=== PATIENT | female | born 1940 | race American Indian/Alaskan Native ===

== ENCOUNTER 2018-01-16 13:07 | Emergency (ER) | payer BC ==
[2018-01-16 13:58] VITALS: BP 146/63
--- NOTE | 2018-01-16 14:29 | EDM.PDOC ---
ED HPI GENERAL MEDICAL PROBLEM - General Chief Complaint: Abdominal Pain Stated Complaint: DEHYDRATED, NO ENERGY Time Seen by Provider: 01/16/18 14:15 Source of Information: Reports: Patient, Old Records History Limitations: Reports: No Limitations - History of Present Illness INITIAL COMMENTS - FREE TEXT/NARRATIVE: 77 yo female here with epigastric pressure today associated with low grade fever on an off for a couple days. No self tx today. Has a pHx of gastric bypass here. Drinking or eating does not change her sx's. No bowel or bladder changes. Has a rare cough without SOB. No rash. Still has her gallbladder and appendix. Onset: Gradual Onset Date: 01/13/18 Duration: Waxing/Waning Location: Reports: Abdomen (epigastrium) Quality: Reports: Pressure (mild) Severity: Mild Improves with: Reports: None Worsens with: Reports: None Context: Reports: Other (PHx of gastric bypass) Associated Symptoms: Reports: Fever/Chills (low grade) Treatments DISABILITY EXAMINER: Reports: Other (see below) (none) denies Pain Score (Numeric/FACES): 0 - Related Data Allergies Allergy/AdvReac Type Severity Reaction Status Date / Time No Known Allergies Allergy Verified 01/16/18 13:45 Home Meds: Home Meds Cholecalciferol (Vitamin D3) [Vitamin D3] 1,000 units PO DAILY 01/16/18 [History ] Mv-Mn/FA/Vit K/Lycop/Lut/Coq10 [Daily Multivitamin Capsule] 1 tab PO DAILY 01/16 [History] Vitamin B 12 Inj 1 injection IM ASDIRECTED 01/16/18 [History] metFORMIN [Glucophage] 500 mg PO BEDTIME 01/16/18 [History] Past Medical History Genitourinary History: Reports: Renal Calculus 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: , 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 Musculoskeletal History: Reports: Fracture Other Musculoskeletal History: fx ankle Endocrine/Metabolic History: Reports: Diabetes, Type II, Obesity/BMI 30+ Hematologic History: Reports: B12 Deficiency - Infectious Disease History Infectious Disease History: Reports: Chicken Pox, Measles, Mumps - Past Surgical History HEENT Surgical History: Reports: Cataract Surgery GI Surgical History: Reports: Bariatric Procedure, Colonoscopy Social & Family History - Tobacco Use Smoking Status *Q: Never Smoker Second Hand Smoke Exposure: No - Caffeine Use Caffeine Use: Reports: Tea - Recreational Drug Use Recreational Drug Use: No ED ROS GENERAL - Review of Systems Review Of Systems: See Below Constitutional: Reports: Fever (low grade) HEENT: Reports: No Symptoms Respiratory: Reports: Cough (rare) Cardiovascular: Reports: No Symptoms GI/Abdominal: Reports: Abdominal Pain (mild epigastric pressure). Denies: Black Stool, Bloody Stool, Constipation, Diarrhea, Melena, Nausea, Vomiting : Reports: No Symptoms Musculoskeletal: Reports: No Symptoms Skin: Reports: No Symptoms Neurological: Reports: No Symptoms ED EXAM, GI/ABD - Physical Exam Exam: See Below Exam Limited By: No Limitations General Appearance: Alert, WD/WN, No Apparent Distress Eyes: Bilateral: Normal Appearance Ears: Normal External Exam, Normal Canal, Hearing Grossly Normal, Normal TMs Nose: Normal Inspection, Normal Mucosa, No Blood Throat/Mouth: Normal Inspection, Normal Lips, Normal Oropharynx, Normal Voice, No Airway Compromise Head: Atraumatic, Normocephalic Neck: Normal Inspection, Supple Respiratory/Chest: No Respiratory Distress, No Accessory Muscle Use, Rhonchi (L base) Cardiovascular: Regular Rate, Rhythm, No Edema GI/Abdominal Exam: Normal Bowel Sounds, Soft, Non-Tender Back Exam: Normal Inspection. No: CVA Tenderness (R), CVA Tenderness (L) Extremities: Normal Inspection, Normal Range of Motion, Non-Tender, No Pedal Edema Neurological: Alert, Oriented, CN II-XII Intact, Normal Cognition, No Motor/ Sensory Deficits Psychiatric: Normal Affect, Normal Mood Course - Vital Signs Last Recorded V/S: Last Vital Signs Temp 37.1 C 01/16/18 14:04 Pulse 77 01/16/18 14:04 Resp 13 01/16/18 14:04 BP 146/63 H 01/16/18 14:04 Pulse Ox 98 01/16/18 14:04 - Orders/Labs/Meds Orders: Active Orders 24 hr Category Date Time Status Chest 2V [CR] Stat Exams 01/16/18 14:23 Taken UA W/MICROSCOPIC [URIN] Stat Lab 01/16/18 14:23 Ordered Labs: Laboratory Tests 01/16/18 01/16/18 01/16/18 Range/Units 14:23 14:23 14:23 WBC 11.8 H (4.5-11.0) K/uL RBC 4.07 (3.30-5.50) M/uL Hgb 11.7 L (12.0-15.0) g/dL Hct 35.5 L (36.0-48.0) % MCV 87 (80-98) fL MCH 29 (27-31) pg MCHC 33 (32-36) % Plt Count 278 (150-400) K/uL Sodium 138 L (140-148) mmol/L Potassium 3.9 (3.6-5.2) mmol/L Chloride 103 (100-108) mmol/L Carbon Dioxide 26 (21-32) mmol/L Anion Gap 12.9 (5.0-14.0) mmol/L BUN 12 (7-18) mg/dL Creatinine 0.9 (0.6-1.0) mg/dL Est Cr Clr Drug Dosing 50.90 mL/min Estimated GFR (MDRD) > 60 (>60) Glucose 236 H (74-106) mg/dL Calcium 8.4 L (8.5-10.1) mg/dL C-Reactive Protein 6.20 H (0.0-0.3) mg/dL Urine Color [place] Urine Appearance Clear Urine pH 5.0 (4.5-8.0) Ur Specific [place] 1.015 (1.008-1.030) Urine Protein Negative (NEGATIVE) mg/dL Urine Glucose (UA) 250 H (NEGATIVE) mg/dL Urine Ketones Negative (NEGATIVE) mg/dL Urine Occult Blood Negative (NEGATIVE) Urine Nitrite Negative (NEGATIVE) Urine Bilirubin Moderate (NEGATIVE) Urine Urobilinogen >=12 H (NORMAL) mg/dL Ur Leukocyte Esterase Negative (NEGATIVE) Urine RBC 0-5 (0-5) Urine WBC 10-20 H (0-5) Ur Epithelial Cells Many Amorphous Sediment Not seen Urine Bacteria Not seen Urine Mucus Not seen - Radiology Interpretation Free Text/Narrative:: CXR-Loss of heart border along L base. Departure - Departure Time of Disposition: 15:35 Disposition: Home, Self-Care 01 Condition: Fair Clinical Impression: Elevated blood sugar UTI (urinary tract infection) Qualifiers: Urinary tract infection type: site unspecified Hematuria presence: without hematuria Qualified Code(s): N39.0 - Urinary tract infection, site not specified - Discharge Information Referrals: Vivian Ayala I CONVEYANCER [Primary Care Provider] - Forms: ED Department Discharge - My Orders Last 24 Hours: My Active Orders 01/16/18 14:23 Chest 2V [CR] Stat UA W/MICROSCOPIC [URIN] Stat - Assessment/Plan Last 24 Hours: My Active Orders 01/16/18 14:23 Chest 2V [CR] Stat UA W/MICROSCOPIC [URIN] Stat
--- NOTE | 2018-01-17 09:21 | CR ---
Chest 2V INDICATION: low grade fever, rhonchi L base COMPARISON: None FINDINGS: Two views. Heart size normal. Lungs are clear. No infiltrate or pleural effusion. No sig ns of pulmonary edema.
== END 2018-01-16 15:47 | disposition home or self-care (01) ==
LOC: JP.ED 13:07
DX: N39.0 Urinary tract infection, site not specified (principal); E11.9 Type 2 diabetes mellitus without complications; Z79.84 Long term (current) use of oral hypoglycemic drugs
CPT/HCPCS: 36415; 71046; 71046-26; 80048; 81001; 85027; 86140; 99284

== ENCOUNTER 2018-01-17 16:54 | Inpatient (IN) | payer BC ==
[2018-01-17] MEDS ORDERED: HYDROmorphone 0.5 MG/0.5 ML Syringe IVPUSH ONE (18:08)
--- NOTE | 2018-01-17 18:14 | EDM.PDOC ---
ED HPI GENERAL MEDICAL PROBLEM - General Chief Complaint: Abdominal Pain Stated Complaint: ABDOMINAL PAIN Time Seen by Provider: 01/17/18 18:00 Source of Information: Reports: Patient, Old Records History Limitations: Reports: No Limitations - History of Present Illness INITIAL COMMENTS - FREE TEXT/NARRATIVE: 77 yo female was here yesterday with mild epigastric fullness. Her labs were normal and her exam was fairly unremarkable. Also, her sx's were mostly better in the ER and remained mostly gone until about 12:30 pm today. She ate last night and this morning without incidence. However, lunch was a small amt of tomato soup after which her sx's returned worse than ever. No imaging was done yesterday, but with her getting worse today this may be taylor. She denies fever or nausea, but does request pain meds. Onset: Today Onset Date: 01/17/18 Onset Time: 12:30 Duration: Hour(s):, Constant Location: Reports: Abdomen (epigastrium) Quality: Reports: Other (fullness) Severity: Moderate Improves with: Reports: None Worsens with: Reports: None Context: Reports: Other (PHx of gastric bypass) Associated Symptoms: Reports: Loss of Appetite. Denies: Fever/Chills, Nausea/ Vomiting Treatments CLAIMS SORTER: Reports: Other (see below) (none) abd Pain Score (Numeric/FACES): 6 - Related Data Allergies Allergy/AdvReac Type Severity Reaction Status Date / Time No Known Allergies Allergy Verified 01/16/18 13:45 Home Meds: Home Meds Amoxicillin 500 mg PO TID #30 capsule 01/16/18 [Rx] Cholecalciferol (Vitamin D3) [Vitamin D3] 1,000 units PO DAILY 01/16/18 [History ] Mv-Mn/FA/Vit K/Lycop/Lut/Coq10 [Daily Multivitamin Capsule] 1 tab PO DAILY 01/16 [History] Vitamin B 12 Inj 1 injection IM ASDIRECTED 01/16/18 [History] metFORMIN [Glucophage] 1,000 mg PO BEDTIME 01/16/18 [History] Past Medical History Genitourinary History: Reports: Renal Calculus 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: , 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 Musculoskeletal History: Reports: Fracture Other Musculoskeletal History: fx ankle Endocrine/Metabolic History: Reports: Diabetes, Type II, Obesity/BMI 30+ Hematologic History: Reports: B12 Deficiency - Infectious Disease History Infectious Disease History: Reports: Chicken Pox, Measles, Mumps - Past Surgical History HEENT Surgical History: Reports: Cataract Surgery GI Surgical History: Reports: Bariatric Procedure, Colonoscopy Social & Family History - Tobacco Use Smoking Status *Q: Never Smoker - Caffeine Use Caffeine Use: Reports: Tea - Recreational Drug Use Recreational Drug Use: No ED ROS GENERAL - Review of Systems Review Of Systems: See Below Constitutional: Reports: No Symptoms HEENT: Reports: No Symptoms Respiratory: Reports: No Symptoms Cardiovascular: Reports: No Symptoms GI/Abdominal: Reports: Abdominal Pain, Decreased Appetite. Denies: Black Stool , Bloody Stool, Constipation, Diarrhea, Difficulty Swallowing, Hematemesis, Hematochezia, Melena, Nausea, Vomiting : Reports: No Symptoms Musculoskeletal: Reports: No Symptoms Skin: Reports: No Symptoms Neurological: Reports: No Symptoms Psychiatric: Reports: No Symptoms ED EXAM, GI/ABD - Physical Exam Exam: See Below Exam Limited By: No Limitations General Appearance: Alert, WD/WN, No Apparent Distress Eyes: Bilateral: Normal Appearance Ears: Normal External Exam, Normal Canal, Hearing Grossly Normal Nose: Normal Inspection, Normal Mucosa, No Blood Throat/Mouth: Normal Inspection, Normal Lips, Normal Oropharynx, Normal Voice, No Airway Compromise Head: Atraumatic, Normocephalic Neck: Normal Inspection, Supple, Non-Tender Respiratory/Chest: No Respiratory Distress, Lungs Clear, Normal Breath Sounds, No Accessory Muscle Use Cardiovascular: Regular Rate, Rhythm, No Edema GI/Abdominal Exam: Normal Bowel Sounds, Soft, Distended (mild), Tender (mild epigastric tenderness. ) Back Exam: Normal Inspection Extremities: Normal Inspection, Normal Range of Motion, Non-Tender, No Pedal Edema Neurological: Alert, Oriented, CN II-XII Intact, Normal Cognition Psychiatric: Normal Affect, Normal Mood Skin Exam: Warm, Dry, Intact, Normal Color, No Rash Course - Vital Signs Text/Narrative:: Dr. Ayala accepted @ Last Recorded V/S: Last Vital Signs Temp 37.3 C 01/17/18 20:25 Pulse 73 01/17/18 20:25 Resp 16 01/17/18 20:25 BP 141/60 H 01/17/18 20:25 Pulse Ox 96 01/17/18 20:25 - Orders/Labs/Meds Orders: Active Orders 24 hr Category Date Time Status Abdomen Pelvis w Cont [CT] Stat Exams 01/17/18 18:04 Taken Iopamidol [Isovue-300 (61%)] Med 01/17/18 18:30 Active 100 ml IV . DIRECTED Lactated Ringers [Ringers, Lactated] 1,000 ml Med 01/17/18 18:15 Active IV ASDIRECTED Sodium Chloride 0.9% [Normal Saline] 80 ml Med 01/17/18 18:30 Active IV ASDIRECTED Sodium Chloride 0.9% [Saline Flush] Med 01/17/18 18:18 Active 10 ml FLUSH ASDIRECTED PRN Medication Orders Lactated Ringer's (Ringers, Lactated) 1,000 mls @ 150 mls/hr IV ASDIRECTED DERICK Last Admin: 01/17/18 18:46 Dose: 150 mls/hr Sodium Chloride (Normal Saline) 80 mls @ 3 mls/sec IV ASDIRECTED DERICK Last Admin: 01/17/18 18:35 Dose: 3 mls/sec Iopamidol (Isovue-300 (61%)) 100 ml IV . DIRECTED [facility] Last Admin: 01/17/18 18:35 Dose: 100 ml Sodium Chloride (Saline Flush) 10 ml FLUSH ASDIRECTED PRN PRN Reason: Keep Vein Open Last Admin: 01/17/18 18:35 Dose: 10 ml Labs: Laboratory Tests 01/17/18 01/17/18 Range/Units 19:30 19:43 WBC 12.5 H (4.5-11.0) K/uL RBC 4.07 (3.30-5.50) M/uL Hgb 12.3 (12.0-15.0) g/dL Hct 35.1 L (36.0-48.0) % MCV 86 (80-98) fL MCH 30 (27-31) pg MCHC 35 (32-36) % Plt Count 281 (150-400) K/uL Sodium 138 L (140-148) mmol/L Potassium 3.9 (3.6-5.2) mmol/L Chloride 104 (100-108) mmol/L Carbon Dioxide 23 (21-32) mmol/L Anion Gap 14.9 H (5.0-14.0) mmol/L BUN 12 (7-18) mg/dL Creatinine 0.8 (0.6-1.0) mg/dL Est Cr Clr Drug Dosing 57.27 mL/min Estimated GFR (MDRD) > 60 (>60) Glucose 222 H (74-106) mg/dL Calcium 8.5 (8.5-10.1) mg/dL Total Bilirubin 2.6 H (0.2-1.0) mg/dL AST 62 H (15-37) U/L ALT 111 H (12-78) U/L Alkaline Phosphatase 185 H (46-116) U/L Total Protein 7.0 (6.4-8.2) g/dL Albumin 3.0 L (3.4-5.0) g/dL Globulin 4.0 H (2.3-3.5) g/dL Albumin/Globulin Ratio 0.8 L (1.2-2.2) Meds: Medications Generic Name Dose Route Start Last Admin Trade Name Freq PRN Reason Stop Dose Admin Lactated Ringer's 1,000 mls @ 150 mls/hr 01/17/18 18:15 01/17/18 18:46 Ringers, Lactated IV 150 mls/hr ASDIRECTED DERICK Administration Sodium Chloride 80 mls @ 3 mls/sec 01/17/18 18:30 01/17/18 18:35 Normal Saline IV 3 mls/sec ASDIRECTED DERICK Administration Iopamidol 100 ml 01/17/18 18:30 01/17/18 18:35 Isovue-300 (61%) IV 100 ml . DIRECTED DERICK Administration Sodium Chloride 10 ml 01/17/18 18:18 01/17/18 18:35 Saline Flush FLUSH 10 ml ASDIRECTED PRN Administration Keep Vein Open Discontinued Medications Generic Name Dose Route Start Last Admin Trade Name Freq PRN Reason Stop Dose Admin Hydromorphone HCl 0.5 mg 01/17/18 18:08 01/17/18 18:45 Dilaudid IVPUSH 01/17/18 18:09 0.5 mg ONETIME ONE Administration - Radiology Interpretation Free Text/Narrative:: CT abd/pelvis with contrast-distended gallbladder. CT Results Date: 01/17/18 CT Results Time: 19:25 Departure - Departure Time of Disposition: 20:45 Disposition: Admitted As Inpatient 66 Condition: Fair Clinical Impression: Cholecystitis - Discharge Information Referrals: Ayala,Vivian I, HULL GRINDER [Primary Care Provider] - Forms: ED Department Discharge - My Orders Last 24 Hours: My Active Orders 01/17/18 18:04 Abdomen Pelvis w Cont [CT] Stat 01/17/18 18:15 Lactated Ringers [Ringers, Lactated] 1,000 ml IV ASDIRECTED 01/17/18 18:18 Sodium Chloride 0.9% [Saline Flush] 10 ml FLUSH ASDIRECTED PRN 01/17/18 18:30 Iopamidol [Isovue-300 (61%)] 100 ml IV . DIRECTED Sodium Chloride 0.9% [Normal Saline] 80 ml IV ASDIRECTED - Assessment/Plan Last 24 Hours: My Active Orders 01/17/18 18:04 Abdomen Pelvis w Cont [CT] Stat 01/17/18 18:15 Lactated Ringers [Ringers, Lactated] 1,000 ml IV ASDIRECTED 01/17/18 18:18 Sodium Chloride 0.9% [Saline Flush] 10 ml FLUSH ASDIRECTED PRN 01/17/18 18:30 Iopamidol [Isovue-300 (61%)] 100 ml IV . DIRECTED Sodium Chloride 0.9% [Normal Saline] 80 ml IV ASDIRECTED
[2018-01-17] MEDS ORDERED: Lactated Ringers 1,000 ML IV SCH (18:15)
[2018-01-17] MEDS ORDERED: Sodium Chloride 0.9% 10 ML Syringe FLUSH PRN (18:18)
[2018-01-17] MEDS ORDERED: Iopamidol 612 MG/ML 100 ML Bottle IV SCH (18:30)
[2018-01-17] MEDS ORDERED: Sodium Chloride 0.9% 80 ML IV SCH (18:30)
[2018-01-17] MEDS ORDERED: Ampicillin/Sulbactam Na 3 GM in Sodium Chloride 0.9% 100 ML IV ONE (20:38)
[2018-01-17] MEDS ORDERED: HYDROmorphone 1 MG/ML Syringe IVPUSH PRN (21:40)
[2018-01-17] MEDS: Ampicillin/Sulbactam Na 3 GM in Sodium Chloride 0.9% 100 ML IV SCH (22:17)
[2018-01-17] MEDS: Dextrose 5%-Lactated Ringers 1,000 ML IV SCH (22:23)
[2018-01-17] MEDS: Insulin Aspart 100 Units/ML 3 ML Pen SUBCUT SCH (22:29)
[2018-01-18] MEDS: Ampicillin/Sulbactam Na 3 GM in Sodium Chloride 0.9% 100 ML IV SCH ×4 (03:09→19:53)
[2018-01-18] MEDS: Dextrose 5%-Lactated Ringers 1,000 ML IV SCH ×3 (05:37→17:13)
[2018-01-18] MEDS ORDERED: Neostigmine Methylsulfate 1 MG/ML 5 ML Syringe ONE (06:55)
[2018-01-18] MEDS ORDERED: Propofol 200 MG/20 ML SDV ONE (06:55)
[2018-01-18] MEDS ORDERED: Glycopyrrolate 0.2 MG/ML 5 ML MDV ONE (06:55)
[2018-01-18] MEDS ORDERED: Ondansetron 4 MG/2 ML SDV ONE (06:55)
[2018-01-18] MEDS ORDERED: Succinylcholine 200 MG/10 ML MDV ONE (06:55)
[2018-01-18] MEDS ORDERED: Rocuronium 50 MG/5 ML Vial ONE (06:55)
[2018-01-18] MEDS ORDERED: Dexamethasone 4 MG/ML SDV ONE (06:55)
[2018-01-18] MEDS ORDERED: fentaNYL 250 MCG/5 ML SDV ONE (06:57)
[2018-01-18] MEDS ORDERED: Bupivacaine 0.5%/EPINEPHrine 1:200,000 50 ML MDV ONE (07:03)
[2018-01-18] MEDS ORDERED: HYDROmorphone/Normal Saline 15 MG/30 ML PCA IV PRN (07:17)
[2018-01-18] MEDS ORDERED: Naloxone 0.4 MG/ML SDV IV PRN (07:17)
[2018-01-18] MEDS ORDERED: Ketamine 500 MG/5 ML MDV IV SCH (08:00)
[2018-01-18] MEDS ORDERED: Ropivacaine 40 ML, Dexamethasone 8 MG, EPINEPHrine 0.4 MG, Sodium Chloride 0.9% 37.6 ML NERVRT SCH ×4 (08:00)
[2018-01-18] MEDS: Insulin Aspart 100 Units/ML 3 ML Pen SUBCUT SCH ×4 (09:17→21:16)
[2018-01-18] MEDS ORDERED: 50% Dextrose in Water 50 ML Syringe IVPUSH PRN (10:13)
[2018-01-18] MEDS ORDERED: Glucagon,Human Recombinant 1 MG Vial IM PRN (10:13)
[2018-01-18] MEDS ORDERED: Glucose Gel 15 GM in 37.5 GM Tube PO PRN (10:13)
[2018-01-18] MEDS ORDERED: Acetaminophen/HYDROcodone 325-5 MG Tab PO PRN (10:31)
[2018-01-18] MEDS: metFORMIN 500 MG Tab PO SCH ×2 (11:23→16:48)
[2018-01-18] MEDS: Ondansetron 4 MG/2 ML SDV IVPUSH PRN ×2 (12:12→17:13)
[2018-01-18] MEDS ORDERED: Pantoprazole 40 MG Vial IV SCH (14:00)
[2018-01-19] MEDS: Ampicillin/Sulbactam Na 3 GM in Sodium Chloride 0.9% 100 ML IV SCH ×2 (02:04→08:36)
[2018-01-19] MEDS: Dextrose 5%-Lactated Ringers 1,000 ML IV SCH (04:20)
[2018-01-19 07:42] VITALS: BP 148/67
[2018-01-19] MEDS: metFORMIN 500 MG Tab PO SCH (08:36)
[2018-01-19] MEDS: Insulin Aspart 100 Units/ML 3 ML Pen SUBCUT SCH (08:37)
--- NOTE | 2018-01-21 09:23 | DISCH ---
FINAL DIAGNOSES: 1. Subacute cholecystitis and cholelithiasis. 2. Billious pericholecystic inflammatory fluid collection. 3. Bariatric surgery status. 4. Type 2 diabetes mellitus, presently poorly controlled. 5. Recent diagnosis of urinary tract infection. OPERATIVE PROCEDURE: This was done on 01/18, diagnostic laparoscopy with: 1. Cholecystectomy. 2. Drainage of inflammatory pericholecystic fluid collection. HOSPITAL COURSE: In summary, this 77-year-old female is presenting here with a picture of acute or subacute cholecystitis. Her workup confirmed that, and on 01/18, the patient underwent a cholecystectomy. She had a bile stained pericholecystic fluid collection present with quite a bit of focal peritonitis associated with that. Postoperatively, she has done well, presently tolerating a regular diet and will be discharged home on Met[place]. She was given amoxicillin prior to hospitalization for UTI and then finished off the antibiotic treatment for that by means of inpatient Unasyn, which was also used for the gallbladder infection. One notable finding in this patient's hospitalization is her diabetes appears at this point appears to be relatively poorly controlled with blood sugars running in the 200s to low-to- mid 300s and hemoglobin A1c recorded on 01/18 was 8.5. She had recently deescalated her treatment somewhat and came in only on metformin 1000 mg in the evening. The plan at this point will be to move the metformin up to 1000 mg b.i.d., and she will be instructed to keep blood sugar logs and next week see her provider at [facility], Vivian Ayala NP Her preoperative bilirubin was 2.6 likely related to the acute or subacute cholecystitis. This morning on postop day one, it is down to 1.3 and her SG drain is clear and that will be removed. The patient will be discharged home today with Metz 5/325, 1 to 2 tabs q.4 hours p.r.n. pain, #30 and increase the metformin to 1000 mg b.i.d. otherwise to remain on her usual medications. She will be instructed to finish off the amoxicillin that she was started on prior to the hospitalization.
--- NOTE | 2018-01-28 07:51 | OR ---
DATE OF PROCEDURE: 01/18/2018 PREOPERATIVE DIAGNOSIS: Subacute cholecystitis and cholelithiasis. POSTOPERATIVE DIAGNOSES: 1. Subacute cholecystitis and cholelithiasis. 2. Bilious pericholecystic inflammatory fluid collection. OPERATIVE PROCEDURES: Diagnostic laparoscopy with: 1. Cholecystectomy (29430). 2. Drainage of bilious pericholecystic inflammatory fluid collection (03053). ANESTHESIA: General. TENTMAKER: Marni Manley PA-C. INDICATIONS FOR PROCEDURE: This is a 77-year-old admitted overnight with a picture of acute or subacute cholecystitis. The plan is to proceed with a laparoscopic or if necessary open cholecystectomy. Potential risks including bleeding and infection, injury to underlying viscera such as common bile duct, possible migration of stones into the common bile duct during the course of the dissection, requiring additional procedures for correction were all reviewed, and the patient wishes to proceed. DETAILS OF PROCEDURE: The patient was taken to the operating room and placed in a supine position. After general endotracheal anesthesia was induced, the abdomen was prepped and draped. Just to the right of the umbilicus, a transverse incision was made and the peritoneal cavity entered under direct vision with an Optiview trocar and inflated to 15 mmHg pressure with CO2. Laparoscope was then reinserted. No underlying trocar insertion site injuries were seen. Following this, an epigastric trocar was placed, along with a right upper quadrant trocar, and the upper abdomen was examined. The patient was noted to have a fairly striking and slightly bile-stained fluid collection predominantly behind the gallbladder. This resulted in localized peritonitis in that area. This fluid was aspirated and sent for culture. The gallbladder itself was edematous and quite distended and consistent with a subacute cholecystitis. The gallbladder was then retracted anteriorly and laterally and dissection with Harmonic scalpel begun on the gallbladder neck and continued around the gallbladder neck/cystic duct junction. Once that area, as well as the adjacent cystic artery were both clearly delineated, both structures were divided. The cystic duct/gallbladder neck junction were quite friable, and this was felt best treated with a surgical staple line, which was accomplished with a GASPER browne load. The artery was then divided between clips with electrocautery. The gallbladder was then dissected off the gallbladder bed and brought out through the upper abdominal trocar site. It was noted to contain multiple small stones. The area of dissection was inspected. A Ramiro-Mantilla drain was then placed into the area of the gallbladder bed, and the area of fluid associated with localized peritonitis behind that area, and brought out through the right lateral trocar site. The remaining trocars were then removed and the peritoneal cavity deflated. The fascia at the 12 mm sites was closed with 0 Vicryl stitch, and the skin with a 4-0 Vicryl skin stitch. Dressing was applied. The patient was taken to the recovery room in a satisfactory condition. There were no evident complications. Physician family medicine physician assistant, Marni Manley, played an essential role in assisting in this case, helping to position the patient, retract structures as needed, as well as suturing and cutting sutures when indicated. Her presence improved patient safety and decreased the operative time. Roe Ayala MD /[id number]
== END 2018-01-19 11:45 | disposition home or self-care (01) | DRG 263 ==
LOC: JP.ED 16:54 → JP.ICU 21:19 → JP.MS 01-18 10:00
PROVIDERS: ADMIT Surgery; ATTEND Surgery
PROC: 0FT44ZZ Resection of Gallbladder, Percutaneous Endoscopic Approach (ICD-10-PCS; principal; 2018-01-18)
PROC: 0D9W4ZX Drainage of Peritoneum, Percutaneous Endoscopic Approach, Diagnostic (ICD-10-PCS; 2018-01-18)
DX: K80.00 Calculus of gallbladder with acute cholecystitis without obstruction (principal); K65.8 Other peritonitis; N39.0 Urinary tract infection, site not specified; E53.8 Deficiency of other specified B group vitamins; E11.65 Type 2 diabetes mellitus with hyperglycemia; Z79.899 Other long term (current) drug therapy; Z79.84 Long term (current) use of oral hypoglycemic drugs; Z98.84 Bariatric surgery status; Z87.442 Personal history of urinary calculi
CPT/HCPCS: 36415; 74177; 80053; 82247; 82306; 82607; 82728; 82746; 82962; 83036; 84075; 85027; 87070; 87075; 87077; 87186; 87205; 88304; 94762; 96374; 96375; 99285-25; A9270-GY; C9113; J0171; J0295; J0330; J1100; J1170; J2405; J2704; J2710; J2795; J3010; J7030; J7042; J7050; J7120; Q9967

== ENCOUNTER 2023-07-14 15:10 | Emergency (ER) | payer BC, MEDICARE ==
[2023-07-14 16:56] VITALS: BP 137/74; PULSE 63
== END 2023-07-14 16:50 | disposition home or self-care (01) ==
LOC: JP.ED 15:10
DX: R42 Dizziness and giddiness (principal); H81.22 Vestibular neuronitis, left ear; E11.9 Type 2 diabetes mellitus without complications; E66.9 Obesity, unspecified; Z86.16 Personal history of COVID-19; Z68.28 Body mass index [BMI] 28.0-28.9, adult
CPT/HCPCS: 99283

== ENCOUNTER 2023-10-29 18:06 | Emergency (ER) | payer BC ==
[2023-10-29 18:47] VITALS: BP 166/73; PULSE 62
[2023-10-29 19:35] LABS: BASOPHILS ABSOLUTE AUTO 0.05 K/uL (0.00-0.10); BASOPHILS PERCENT AUTO 0.7 % (0.1-1.3); EOSINOPHILS ABSOLUTE AUTO 0.17 K/uL (0.00-0.40); EOSINOPHILS PERCENT AUTO 2.3 % (0.0-5.4); HEMATOCRIT 35.2 % (34.3-46.0); HEMOGLOBIN 11.3 g/dL (11.2-15.5); IMMATURE GRAN ABSOLUTE AUTO 0.04 K/uL (0.00-0.23); IMMATURE GRAN PERCENT AUTO 0.5 % (0.0-0.7); LYMPHOCYTES PERCENT AUTO 19.2 % (11.4-47.7); MEAN CORPUSCULAR HGB CONC 32.1 g/dL (31.6-35.5); MEAN CORPUSCULAR VOLUME 81.1 fL (81.4-99.0); MONOCYTES ABSOLUTE AUTO 0.32 K/uL (0.20-0.90); MONOCYTES PERCENT AUTO 4.4 % (3.3-12.6); NEUTROPHILS PERCENT AUTO 72.9 % (40.0-78.1); PLATELET COUNT,PLT 299 K/uL (130-375); RED BLOOD CELL COUNT 4.34 M/uL (3.77-5.24); WHITE BLOOD CELL COUNT,WBC 7.3 K/uL (3.2-11.0)
[2023-10-29 20:04] LABS: A/G RATIO 0.9 (1.2-2.2); ALANINE AMINOTRANSFERASE,ALT 15 U/L (12-78); ALBUMIN 3.4 g/dL (3.4-5.0); ALKALINE PHOSPHATASE 107 U/L (46-116); ANION GAP 7.9 mmol/L (5.0-14.0); ASPARTATE AMNIOTRANSFERASE,AST 16 U/L (15-37); BILIRUBIN TOTAL 0.3 mg/dL (0.2-1.0); BLOOD UREA NITROGEN,BUN 14 mg/dL (7-18); CALCIUM 8.9 mg/dL (8.5-10.1); CARBON DIOXIDE,CO2 26 mmol/L (21-32); CHLORIDE,CL 108 mmol/L (100-108); EST CRCL DRUG DOSING (CG) 38.36 mL/min; ESTIMATED GFR 56 mL/min (>60); GLUCOSE RANDOM 153 mg/dL (74-106); POTASSIUM,K 4.4 mmol/L (3.6-5.2); PROTEIN TOTAL,TP 7.2 g/dL (6.4-8.2); SODIUM,NA 142 mmol/L (140-148); TSH ULTRASENSITIVE 1.308 uIU/mL (0.358-3.740)
== END 2023-10-29 21:12 | disposition home or self-care (01) ==
LOC: JP.ED 18:06
DX: R42 Dizziness and giddiness (principal); E11.9 Type 2 diabetes mellitus without complications; E66.9 Obesity, unspecified; Z79.899 Other long term (current) drug therapy; Z86.19 Personal history of other infectious and parasitic diseases; Z86.16 Personal history of COVID-19; Z68.28 Body mass index [BMI] 28.0-28.9, adult
CPT/HCPCS: 36415; 80053; 84443; 85025; 99284